=== PATIENT | male | born 1980 | race Caucasian/White ===

== ENCOUNTER 2017-03-07 09:44 | Emergency (ER) | payer OTHER ==
[~2017-03-07] VITALS: Ht 190.5 cm; Wt 84.1 kg
[~2017-03-07 09:44] MED LIST: DECADRON4 MG PO; DILAUDID2 MG PO; EXCEDRIN EXTRA1 EACH PO; HYDROCODON-ACE1 EAC7 PO; MEDROL DOSEPAK4 MG PO; NAPROXEN500 MG PO; PEPCID20 MG PO; PERCOCET 5/31 TABLET PO; SUBOXONE 8 MG-1 EAC2 SL; ZOFRAN4 MG PO
[2017-03-07 09:47] VITALS: BP 119/75
[2017-03-08] MEDS ORDERED: TRAZODONE HCL50 MG PO (11:39)
[2017-03-08] MEDS ORDERED: CLONIDINE HCL0.1 MG PO (11:39)
== END 2017-03-07 12:04 | disposition left against medical advice (07) ==
LOC: EME 09:44
DX: R51 Headache (principal); Z86.011 Personal history of benign neoplasm of the brain; Z79.891 Long term (current) use of opiate analgesic; Z53.21 Procedure and treatment not carried out due to patient leaving prior to being seen by health care provider

== ENCOUNTER 2017-03-08 08:51 | Emergency (ER) | payer OTHER ==
[~2017-03-08] VITALS: Ht 190.5 cm; Wt 81.8 kg
[2017-03-08 09:16] VITALS: BP 121/75
[2017-03-08] MEDS ORDERED: TRAZODONE HCL50 MG PO (11:39)
[2017-03-08] MEDS ORDERED: CLONIDINE HCL0.1 MG PO (11:39)
== END 2017-03-08 09:27 | disposition left against medical advice (07) ==
LOC: EME 08:51
DX: Z76.0 Encounter for issue of repeat prescription (principal); Z53.21 Procedure and treatment not carried out due to patient leaving prior to being seen by health care provider

== ENCOUNTER 2017-03-08 10:11 | Emergency (ER) | payer OTHER ==
[~2017-03-08] VITALS: Ht 190.5 cm; Wt 81.8 kg
[2017-03-08 10:22] VITALS: BP 121/75
[2017-03-08] MEDS ORDERED: TRAZODONE HCL50 MG PO (11:39)
[2017-03-08] MEDS ORDERED: CLONIDINE HCL0.1 MG PO (11:39)
== END 2017-03-08 11:50 | disposition home or self-care (01) ==
LOC: EME 10:11
DX: G89.29 Other chronic pain (principal); Z79.891 Long term (current) use of opiate analgesic; Z85.841 Personal history of malignant neoplasm of brain; Z88.0 Allergy status to penicillin; F17.200 Nicotine dependence, unspecified, uncomplicated
CPT/HCPCS: 99281; 99283

== ENCOUNTER 2017-10-10 09:21 | Emergency (ER) | payer OTHER ==
[~2017-10-10] VITALS: Ht 190.5 cm; Wt 77.0 kg
[~2017-10-10 09:21] MED LIST changes: +CLONIDINE HCL0.1 MG PO; +TRAZODONE HCL50 MG PO
[2017-10-10] MEDS ORDERED: SUBOXONE 12 MG1 EACH SL (09:53)
[2017-10-10 10:00] VITALS: BP 122/85
== END 2017-10-10 10:30 | disposition home or self-care (01) ==
LOC: EME 09:21
DX: Z76.0 Encounter for issue of repeat prescription (principal); F11.23 Opioid dependence with withdrawal; R11.0 Nausea; Z88.0 Allergy status to penicillin
CPT/HCPCS: 99281; 99284